=== PATIENT | male | born 1975 | race Caucasian/White ===

== ENCOUNTER 2016-04-14 19:14 | Emergency (ER) | payer MEDICAID, OTHER ==
[~2016-04-14] VITALS: Ht 167.6 cm; Wt 76.0 kg
[2016-04-14 19:15] VITALS: BP 144/76; PULSE 71; RESP 14; TEMP 98.1; O2SAT 97
[2016-04-14] MEDS ORDERED: LIDOCAINE HCL 1% PF 30 ML VIAL INFIL ONE (19:30)
[2016-04-14] MEDS ORDERED: TETANUS/DIPHTHERIA TOXOID ADULT 0.5 ML VIAL IM ONE (19:30)
--- NOTE | 2016-04-14 19:30 | PD ---
HPI Chief Complaint: Laceration/Skin Injury Time Seen by Provider: 19:20 Travel History International Travel<30 days: No Contact w/Intl Traveler<30days: No Traveled to known affect area: No History of Present Illness HPI [id number] male presents for evaluation of laceration to the left thumb. It was sustained 2 hours ago when he was working in an before [employer] unit and the sharp metal edge cut his thumb. He knows laceration to the dorsal proximal aspect of left thumb which is bleeding some, mildly painful, worse with palpation. Denies any range of motion limitation, numbness or tingling. Last tetanus vaccination unknown. No other complaints. PFSH Past Medical History Medical History: Denies Significant Hx Social History Alcohol Use: No Tobacco Use: No Allergies-Medications (Allergen,Severity, Reaction): Coded Allergies: No Known Allergies (Unverified , 04/14/16) Reported Meds & Prescriptions Reported Meds & Active Scripts Active Keflex (Cephalexin) 500 Mg Cap 500 Mg PO Q8H 5 Days Review of Systems Musculoskeletal: Positive: Pain, No: Limited ROM Skin: Positive Other (positive for laceration, bleeding) Neurologic: No: Paresthesia Physical Exam Narrative GENERAL: Well-developed well-nourished male in no acute distress SKIN: Warm and dry. 1 cm laceration on the dorsal proximal aspect of the left thumb, mildly bleeding with no pulsating blood. Extremities: Skin as noted above. No bony deformity. The patient maintains full flexion and extension against resistance at the MCP and PI joint of the affected thumb. Distal sensation is preserved on the ulnar and radial aspect of left thumb. Data Data Last Documented VS Vital Signs Date Time Temp Pulse Resp B/P Pulse Ox O2 Delivery O2 Flow Rate FiO2 04/14/16 19:15 98.1 71 14 144/76 97 Room Air Orders Lidocaine Pf 1% Inj (Xylocaine-Mpf 1% In (04/14/16 19:30) Tetanus/Diphtheria Tox Adult (Tetanus/Di (04/14/16 19:30) Splint Or Brace Apply/Monitor (04/14/16 20:16) MDM Medical Decision Making Medical Screen Exam Complete: Yes Emergency Medical Condition: Yes Medical Record Reviewed: Yes Differential Diagnosis Cutaneous laceration, puncture wound, extensor tendon laceration Narrative Course 40-year-old male presents with a laceration of the dorsal left thumb with no evidence of tendon or neurovascular or bony injury. The laceration will be repaired with sutures, he verbally consents. Tetanus status updated. The patient will be discharged with a finger splint, Keflex. He is encouraged to minimize use of the finger to minimize the risk wound dehiscence. Procedures Procedure Narrative LACERATION LOCATION: Left thumb LENGTH: 1 cm NUMBER OF STITCHES/GREGOR: 6 REPAIR: The area of the laceration was prepped with Betadine and sterilely draped. The laceration was infiltrated with 1% lidocaine digital block. The wound was copiously irrigated and explored without evidence of foreign body, tendon injury or neurovascular injury. The wound was closed using 5-0 Prolene simple interrupted. This was a single layer repair. A sterile dressing was applied. The patient was advised to keep the dressing clean and dry. Patient tolerated the procedure well. Diagnosis Primary Impression: Finger laceration Qualified Code: S61.219A - Finger laceration, initial encounter Additional Instructions: Take antibiotics as prescribed. Minimal use of the left thumb. Wash gently with soap and water and apply antibiotic cream daily. Return in 10-14 days for suture removal. Med/Other Pt SpecificInfo: Prescription(s) given, Wound Care, Orthopedic Instructions Scripts Cephalexin (Keflex)500 Mg [id number] Mg PO Q8H 5 Days Ref 0 Prov:Baldo Gibbons MD 04/14/16 Disposition: 01 DISCHARGE HOME Condition: Stable Kaushik Marrero Apr 14, 2016 19:30
[2016-04-14] MEDS ORDERED: CEPH-460 PO (20:17)
[2016-04-14] MEDS ORDERED: ACETAMINOPHEN/CODEINE 300 MG/30 MG TAB PO ONE (21:15)
== END 2016-04-14 21:21 | disposition home or self-care (01) ==
LOC: NEPB 19:14
DX: S61.012A Laceration without foreign body of left thumb without damage to nail, initial encounter (principal); W45.8XXA Other foreign body or object entering through skin, initial encounter; Y99.0 Civilian activity done for income or pay; Z23 Encounter for immunization
CPT/HCPCS: 12001; 90471; 90714